=== PATIENT | female | born 1960 | race Caucasian/White ===

== ENCOUNTER → 2019-03-30 | Outpatient (CLI) | payer OTHER ==
[~2019-03-30] MED LIST: LEVOFLOXACIN500 MG PO; LOMOTIL 2.5-0.1 EACH PO; TRAZODONE100 MG PO; ZESTORETIC 20-1 EACH PO; ZOFRAN4 MG PO
[2019-03-30 14:18] LABS: BILIRUBIN 2+ (NEGATIVE); BLOOD TRACE-LYSED (NEGATIVE); CLARITY SL CLOUDY (CLEAR); COLOR YELLOW (YELLOW); GLUCOSE NEGATIVE (NEGATIVE); KETONE 1+ (NEGATIVE); LEUKO ESTERASE NEGATIVE (NEGATIVE); NITRITE NEGATIVE (NEGATIVE); SPECIFIC GRAVITY >= 1.030 (1.005-1.030); UROBILINOGEN 0.2 E.U./dl (0.2-1.0)
[2019-03-30 14:35] LABS: BACTERIA TRACE; RBC 0-2 rbc/hpf (0-2); WBC 0-2 wbc/hpf (0-5)
[2019-03-30 14:36] LABS: HYALINE CAST 0-2; MUCOUS 1+
[2019-03-30 18:04] LABS: BASO % 0.3 % (0.0-1.0); EOS % 0.7 % (1.0-4.0); HEMATOCRIT 50.1 % (37.0-47.0); HEMOGLOBIN 16.9 g/dl (12.0-16.0); LYMPH % 16.3 % (27.0-41.0); MEAN CELL VOLUME 92.8 fl (81.0-99.0); MEAN CORPUSCULAR HGB 31.3 pg (27.0-31.0); MEAN CORPUSCULAR HGB CONC 33.7 g/dl (33.0-37.0); MEAN PLATELET VOLUME 10.7 fl (9.6-12.3); MONO # 0.9 10*3/uL (0.1-1.0); MONO % 14.2 % (3.0-9.0); NEUT # 4.1 10*3/uL (2.3-7.9); NEUT % 68.2 % (47.0-73.0); PLATELET COUNT AUTOMATED 230 10*3/uL (130-400); RED CELL DISTRI WIDTH 12.4 % (0-14.5)
[2019-03-30 18:33] LABS: ALBUMIN 4.3 gm/dl (3.1-4.5); ALKALINE PHOSPHATASE 69 U/L (45-117); BUN 9 mg/dl (7-24); CHLORIDE 97 mmol/L (98-107); CREATININE 0.97 mg/dL (0.55-1.02); POTASSIUM 3.3 mmol/L (3.5-5.1); SGOT/AST 29 IU/L (3-35); SGPT/ALT 40 U/L (12-78); SODIUM 131 mmol/L (136-145); TOTAL PROTEIN 8.1 gm/dL (6.4-8.2)
== END | disposition home or self-care (01) ==
LOC: LAB 12:50
PROVIDERS: Nurse Practitioner Family
DX: R00.0 Tachycardia, unspecified (principal); M25.50 Pain in unspecified joint; R53.83 Other fatigue; R19.7 Diarrhea, unspecified

== ENCOUNTER 2019-03-31 13:02 | Emergency (ER) | payer OTHER ==
[~2019-03-31] VITALS: Wt 57.2 kg
[2019-03-31] MEDS ORDERED: TRAZODONE100 MG PO (13:17)
[2019-03-31] MEDS ORDERED: LEVOFLOXACIN500 MG PO (13:17)
[2019-03-31] MEDS ORDERED: ZESTORETIC 20-1 EACH PO (13:18)
[2019-03-31 14:14] LABS: BASO % 0.2 % (0.0-1.0); EOS % 0.3 % (1.0-4.0); HEMATOCRIT 45.2 % (37.0-47.0); HEMOGLOBIN 16.3 g/dl (12.0-16.0); LYMPH # 0.8 10*3/uL (1.3-4.4); LYMPH % 12.8 % (27.0-41.0); MEAN CORPUSCULAR HGB 31.4 pg (27.0-31.0); MEAN CORPUSCULAR HGB CONC 36.1 g/dl (33.0-37.0); MEAN PLATELET VOLUME 10.1 fl (9.6-12.3); MONO # 0.8 10*3/uL (0.1-1.0); MONO % 12.8 % (3.0-9.0); NEUT # 4.4 10*3/uL (2.3-7.9); NEUT % 73.7 % (47.0-73.0); PLATELET COUNT AUTOMATED 231 10*3/uL (130-400); RED BLOOD COUNT 5.19 10*6/uL (4.10-5.10); RED CELL DISTRI WIDTH 11.9 % (0-14.5); WHITE BLOOD COUNT 5.9 10*3/uL (4.8-10.8)
[2019-03-31 14:16] LABS: MEAN CELL VOLUME 87.1 fl (81.0-99.0)
[2019-03-31 14:49] LABS: BILIRUBIN 2+ (NEGATIVE); BLOOD TRACE-INTACT (NEGATIVE); CLARITY CLOUDY (CLEAR); COLOR YELLOW (YELLOW); GLUCOSE NEGATIVE (NEGATIVE); KETONE 1+ (NEGATIVE); LEUKO ESTERASE NEGATIVE (NEGATIVE); NITRITE NEGATIVE (NEGATIVE); SPECIFIC GRAVITY >= 1.030 (1.005-1.030); UROBILINOGEN 0.2 E.U./dl (0.2-1.0)
[2019-03-31 14:51] LABS: ALBUMIN 3.9 gm/dl (3.1-4.5); ALKALINE PHOSPHATASE 63 U/L (45-117); BUN 13 mg/dl (7-24); CHLORIDE 95 mmol/L (98-107); CREATININE 0.98 mg/dL (0.55-1.02); SGOT/AST 15 IU/L (3-35); SGPT/ALT 35 U/L (12-78); SODIUM 127 mmol/L (136-145); TOTAL PROTEIN 7.7 gm/dL (6.4-8.2)
[2019-03-31 15:03] LABS: BACTERIA 4+; HYALINE CAST TNTC
[2019-03-31] MEDS ORDERED: ZOFRAN4 MG PO (16:13)
[2019-03-31] MEDS ORDERED: LOMOTIL 2.5-0.1 EACH PO (16:13)
== END 2019-03-31 17:12 | disposition home or self-care (01) ==
LOC: ED 13:02
PROVIDERS: Nurse Practitioner Family
DX: E87.6 Hypokalemia (principal); R19.7 Diarrhea, unspecified; Z88.0 Allergy status to penicillin; Z79.899 Other long term (current) drug therapy; Z79.2 Long term (current) use of antibiotics

== ENCOUNTER 2021-08-31 20:27 | Inpatient (IN) | payer OTHER ==
[~2021-08-31] VITALS: Ht 165.1 cm; Wt 53.3 kg
[2021-08-31] VITALS (8 sets, daily range): BP systolic 131–169; BP diastolic 74–96
[2021-08-31 21:09] LABS: EOS # 0.1 10*3/uL (0.0-0.4); EOS % 1.1 % (1.0-4.0); HEMATOCRIT 38.2 % (37.0-47.0); LYMPH # 1.9 10*3/uL (1.3-4.4); MEAN CELL VOLUME 89.3 fl (81.0-99.0); MEAN CORPUSCULAR HGB 30.6 pg (27.0-31.0); MEAN CORPUSCULAR HGB CONC 34.3 g/dl (33.0-37.0); MEAN PLATELET VOLUME 10.1 fl (9.6-12.3); MONO # 0.5 10*3/uL (0.1-1.0); MONO % 6.6 % (3.0-9.0); NEUT # 4.5 10*3/uL (2.3-7.9); NEUT % 65.2 % (47.0-73.0); PLATELET COUNT AUTOMATED 203 10*3/uL (130-400); RED BLOOD COUNT 4.28 10*6/uL (4.10-5.10); RED CELL DISTRI WIDTH 12.1 % (0-14.5)
[2021-08-31 21:22] LABS: ACT PARTIAL THROMBO TIME 29.3 SECONDS (20.0-32.1)
[2021-08-31 21:28] LABS: ALBUMIN 3.8 gm/dl (3.1-4.5); BUN 7 mg/dl (7-24); CHLORIDE 100 mmol/L (98-107); CREATININE 0.52 mg/dL (0.55-1.02); POTASSIUM 3.4 mmol/L (3.5-5.1); SGOT/AST 13 IU/L (3-35); SGPT/ALT 33 U/L (12-78); SODIUM 133 mmol/L (136-145)
[2021-08-31 21:30] LABS: ALKALINE PHOSPHATASE 68 U/L (45-117)
[2021-09-01 00:38] VITALS: BP 120/68
[2021-09-01 01:50] VITALS: BP 122/73
[2021-09-01 02:20] VITALS: BP 120/72
[2021-09-01 06:30] LABS: BASO % 0.1 % (0.0-1.0); EOS % 0.2 % (1.0-4.0); HEMATOCRIT 39.9 % (37.0-47.0); LYMPH % 11.9 % (27.0-41.0); MEAN CELL VOLUME 89.5 fl (81.0-99.0); MEAN CORPUSCULAR HGB 29.8 pg (27.0-31.0); MEAN CORPUSCULAR HGB CONC 33.3 g/dl (33.0-37.0); MEAN PLATELET VOLUME 10.2 fl (9.6-12.3); MONO # 0.9 10*3/uL (0.1-1.0); NEUT # 6.7 10*3/uL (2.3-7.9); NEUT % 77.5 % (47.0-73.0); PLATELET COUNT AUTOMATED 204 10*3/uL (130-400); RED BLOOD COUNT 4.46 10*6/uL (4.10-5.10); RED CELL DISTRI WIDTH 12.2 % (0-14.5); WHITE BLOOD COUNT 8.7 10*3/uL (4.8-10.8)
[2021-09-01 06:37] LABS: BUN 9 mg/dl (7-24); CHLORIDE 106 mmol/L (98-107); CHOLESTEROL 218 mg/dL (<200); CREATININE 0.47 mg/dL (0.55-1.02); LDL CHOLESTEROL 123 mg/dL (9-159); SODIUM 138 mmol/L (136-145); TRIGLYCERIDES 34 mg/dl (<150)
[2021-09-01 07:46] LABS: VITAMIN D, 25-HYDROXY 25.5 ng/mL (30-100)
[2021-09-01 08:00] VITALS: BP 107/71
[2021-09-01 11:58] VITALS: BP 110/67
[2021-09-01] MEDS ORDERED: METOPROLOL SUCC25 M2 PO (13:56)
[2021-09-01] MEDS ORDERED: ATORVASTATIN CA20 M1 PO (13:56)
[2021-09-01] MEDS ORDERED: ASPIRIN ADULT L81 M2 PO (13:56)
== END 2021-09-01 14:30 | disposition home or self-care (01) | DRG 313 ==
LOC: ED 20:27 → EDHOLD 09-01 01:44 → 5E 09-01 02:10
PROVIDERS: Emergency Medicine; Hospitalist; ADMIT Internal Medicine; ATTEND Internal Medicine
DX: R07.9 Chest pain, unspecified (principal); E87.1 Hypo-osmolality and hyponatremia; I10 Essential (primary) hypertension; R73.9 Hyperglycemia, unspecified; E87.6 Hypokalemia; Z82.49 Family history of ischemic heart disease and other diseases of the circulatory system; Z88.0 Allergy status to penicillin; Z79.899 Other long term (current) drug therapy

== ENCOUNTER → 2021-09-03 | Outpatient (CLI) | payer OTHER ==
[~2021-09-03] MED LIST changes: +ASPIRIN ADULT L81 M2 PO; +ATORVASTATIN CA20 M1 PO; +METOPROLOL SUCC25 M2 PO
== END | disposition home or self-care (01) ==
LOC: CARD 01:25
PROVIDERS: ATTEND Internal Medicine Cardiovascular Disease
DX: I08.2 Rheumatic disorders of both aortic and tricuspid valves (principal); I10 Essential (primary) hypertension

== ENCOUNTER → 2024-12-30 | Outpatient (CLI) | payer MEDICARE ==
[2024-12-30 10:54] LABS: BASO % 0.3 % (0.0-1.0); EOS % 0.8 % (1.0-4.0); MEAN CELL VOLUME 93.2 fl (81.0-99.0); MEAN CORPUSCULAR HGB 30.7 pg (27.0-31.0); MEAN CORPUSCULAR HGB CONC 32.9 g/dl (33.0-37.0); MEAN PLATELET VOLUME 10.3 fl (9.6-12.3); MONO # 0.4 10*3/uL (0.1-1.0); MONO % 11.2 % (3.0-9.0); NEUT # 2.2 10*3/uL (2.3-7.9); NEUT % 56.4 % (47.0-73.0); PLATELET COUNT AUTOMATED 226 10*3/uL (130-400); RED CELL DISTRI WIDTH 12.9 % (0-14.5); WHITE BLOOD COUNT 3.8 10*3/uL (4.8-10.8)
[2024-12-30 11:36] LABS: ALKALINE PHOSPHATASE 58 U/L (46-116); BUN 6 mg/dl (9-23); CHLORIDE 101 mmol/L (98-107); CHOLESTEROL 253 mg/dL (<200); LDL CHOLESTEROL 150 mg/dL (9-159); SGPT/ALT 18 U/L (5-49); TOTAL PROTEIN 7.1 gm/dL (6.0-8.0); TRIGLYCERIDES 56 mg/dl (<150)
[2024-12-30 11:50] LABS: VITAMIN D, 25-HYDROXY 43.5 ng/mL (30-100)
== END | disposition home or self-care (01) ==
LOC: LAB 10:17
PROVIDERS: ATTEND Nurse Practitioner Primary Care
DX: I10 Essential (primary) hypertension (principal); E83.52 Hypercalcemia; E55.9 Vitamin D deficiency, unspecified